=== PATIENT | female | born 1980 | race African-American/Black ===

== ENCOUNTER 2016-06-23 23:05 | Inpatient (IN) | payer MEDICAID ==
[~2016-06-23] VITALS: Ht 167.6 cm; Wt 81.6 kg
[2016-06-23 23:08] VITALS: BP 117/74
--- NOTE | 2016-06-23 23:49 | NUR ---
PT TAKEN TO BED 3
[2016-06-23] MEDS ORDERED: diphenhydrAMINE 50 MG/ML VIAL IVP ONE (23:50)
[2016-06-23] MEDS ORDERED: FAMOTIDINE 20 MG/2 ML VIAL IVP ONE (23:50)
[2016-06-23] MEDS ORDERED: DEXAMETHASONE 10 MG/ML VIAL IVP ONE (23:50)
--- NOTE | 2016-06-24 00:10 | NUR ---
Dr. Hill evaluating patient at bedside.
--- NOTE | 2016-06-24 00:41 | NUR ---
PATIENT PRESENTS TO ED WITH ALLERGIC REACTION . PT STATES SHE IS UNAWARE OF WHAT MAY HAVE CAUSED THE REACTION . DENIES N/V/D; SKIN IS PINK/WARM/DRY; AAOX4 WITH EVEN AND STEADY GAIT; LUNGS CLEAR BL; HR EVEN AND REGULAR; PT DENIES ANY FEVER, CP, SOB, OR COUGH AT THIS TIME; PATIENT STATES PAIN OF 0/10 AT THIS TIME; VSS; PATIENT POSITIONED FOR COMFORT; HOB ELEVATED; BEDRAILS UP X2; BED DOWN. ER MD MADE AWARE OF PT STATUS.
--- NOTE | 2016-06-24 01:50 | NUR ---
Dr. Hill evaluating patient at bedside.
--- NOTE | 2016-06-24 02:07 | NUR ---
Patient appears to be resting comfortably in bed. Vital Signs within normal limits. Respirations even and unlabored.
[2016-06-24] MEDS ORDERED: NACL 0.9% 2,000 ML IV ONE (02:20)
[2016-06-24] MEDS ORDERED: NACL 0.9% 1,000 ML IV SCH (02:43)
--- NOTE | 2016-06-24 02:44 | NUR ---
X-Ray at bedside.
[2016-06-24] MEDS ORDERED: LORazepam 2 MG/ML VIAL IVP PRN (02:45)
[2016-06-24] MEDS ORDERED: diphenhydrAMINE 50 MG/ML VIAL IM SCH (02:45)
[2016-06-24] MEDS ORDERED: ONDANSETRON 4 MG/2 ML VIAL IVP PRN (02:45)
[2016-06-24] MEDS ORDERED: MORPHINE SULFATE 2 MG/ML SYR IVP PRN (02:45)
--- NOTE | 2016-06-24 02:58 | NUR ---
Patient will be admitted to care of DR. PHILLIPS. Admited to Med/Surg. Will go to [id number]. Belongings list completed. Report to JULIA DAVIS .
[2016-06-24 03:15] VITALS: BP 118/71
--- NOTE | 2016-06-24 03:15 | NUR ---
RECEIVED PT FROM ER VIA [facility]TE AAOX4 AMBULATORY IV ON LEFT AC GAUGE 22 INFUSING WELL, RASH GENERALIZED AND EDEMATOUS LIPS, PT IS ORIENTED TO THE FLOOR CALL LIGHT WITHIN REACH
--- NOTE | 2016-06-24 03:15 | NUR ---
Pt report given to JULIA DAVIS. Transfer of care at this time.
[2016-06-24 04:00] VITALS: BP 120/70
[2016-06-24] MEDS: methylPREDNISolone SS 125 MG/2 ML VIAL IVP SCH ×3 (04:57→12:17)
[2016-06-24] MEDS ORDERED: methylPREDNISolone SS 125 MG/2 ML VIAL IVP SCH (05:00)
--- NOTE | 2016-06-24 06:10 | NUR ---
PT SLEEPING WELL NOT DISTRESS NOTED SWELLING LIPS AND SOME RASH ON LE , UE PT IMPROVING HER RASH
--- NOTE | 2016-06-24 07:30 | NUR ---
RECEIVED REPORT FROM NOC.PT IS AWAKE/ AROUSABLE. IV INTACT NO SX OF DISTRESS AT THIS TIME.
[2016-06-24] MEDS ORDERED: diphenhydrAMINE 50 MG/ML VIAL IVP PRN (07:50)
[2016-06-24] MEDS ORDERED: DEXTROSE 50% 50 ML SYR IVP PRN (07:50)
[2016-06-24] MEDS ORDERED: INSULIN LISPRO SLIDING SCALE 100 UNITS/ML VIAL SUBQ PRN (07:50)
[2016-06-24] MEDS ORDERED: ALBUTEROL SULFATE/IPRATROPIU 3 ML SOL IH PRN (07:50)
--- NOTE | 2016-06-24 07:51 | NUR ---
RECEIVED REPORT FROM NOC.PT IS ASLEEP BUT AROUSABLE AND ORIENTED. IV INTACT NO SX OF DISTRESS AT THIS TIME.
[2016-06-24] MEDS ORDERED: LORazepam 1 MG TAB PO PRN (07:55)
[2016-06-24] MEDS ORDERED: ACETAMINOPHEN 325 MG TAB PO PRN (07:55)
[2016-06-24] MEDS ORDERED: HYDROcodone/APAP 5/325 MG 1 TAB TAB PO PRN (07:55)
[2016-06-24] MEDS ORDERED: ZOLPIDEM 5 MG TAB PO PRN (07:55)
--- NOTE | 2016-06-24 07:59 | NUR ---
PATIENT HAS BEEN SCREENED AND CATEGORIZED MODERATE NUTRITION RISK. PATIENT WILL BE SEEN WITHIN 3-5 DAYS OF ADMISSION. 06/26/16-06/28/[address]
[2016-06-24 08:00] VITALS: BP 106/65
--- NOTE | 2016-06-24 08:45 | NUR ---
SPOKE WITH RESIDENT. RE: PT METFORMIN 500 MG 1 TAB AT BEDTIME PT WAS TAKING. MD STATED HE WILL ADD IT IN .
[2016-06-24] MEDS ORDERED: DOCUSATE SODIUM 100 MG GELCAP PO SCH (09:00)
[2016-06-24] MEDS ORDERED: FAMOTIDINE 20 MG TAB PO SCH (09:00)
[2016-06-24] MEDS ORDERED: LORATADINE 10 MG TAB PO SCH (09:00)
--- NOTE | 2016-06-24 09:02 | NUR ---
DUE MEDS GIVEN ORDERED PATIENT IS AWAKE AND ORIENTED. NO DISTRESS REPORTED. EKG DONE. NORMAL SINUS RHYTHM
--- NOTE | 2016-06-24 10:21 | NUR ---
IV REDUCED TO 20 ML/HR ORDERED.
--- NOTE | 2016-06-24 11:00 | NUR ---
MADE ROUNDS. PATIENT IS AWAKE AND ORIENTED. TALKING TO THE PHONE
--- NOTE | 2016-06-24 11:20 | NUR ---
CM NOTE PER [employer] MAINTENANCE SUPERVISOR ROSARIO EXT [id number], SEND REVIEW TO BOTH [facility] AND [facility]. INITIAL REVIEW SENT TO [facility] FAX# [phone] PH# [phone] AND TO [facility] FAX# [phone] PH# [phone] YARIEL EXT [id number]
[2016-06-24] MEDS ORDERED: BLOOD GLUCOSE MONITORING 1 DEV DEV FS SCH (11:30)
--- NOTE | 2016-06-24 12:23 | NUR ---
ADMINISTERED MEDS ORDERED PT IS AWAKE.NO DISTRESS. MOTHER CALLED BACK AND WAS GIVEN REPORT ON PT CONDITION. MOTHER TO VISIT THE PATIENT TODAY IV PATEN NO SX OF INFILTRATION. 2 UNITS OF INSULIN GIVEN PER SLIDING SCALE. PT FOOD TRAY AT THE BEDSIDE.
--- NOTE | 2016-06-24 14:00 | NUR ---
ROUNDS MADE. PT IS ASLEEP. NO DISTRESS REOPRTED AT THIS TIME
--- NOTE | 2016-06-24 16:00 | NUR ---
PATIENT REPORTED " I WANT TO GO HOME.'" DR LEHMAN NOTIFIED. SPOKE TO THE PATIENT IN LENGTH TO DISCUSS PLAN OF CARE, BENEFIT AND DISADVANTAGE. PT IS AWAKE AND ORIENTED ABLE TO MAKE DECISIONS. PT INSISTENTLY WANT TO GO HOME "NOW. "
--- NOTE | 2016-06-24 16:43 | NUR ---
AMA FORM SIGNED WITNESSED BY THE PATIENTS MOM. REFUSED FOR VS, GLUCOSE CHECK TO BE TAKEN PT SIGNED RELEASE OF MED RECORDS. BOTH FORMS IN THE CHART. REMOVED IV INTACT. PRESSURE PLACED SECURED WITH TAPE.
== END 2016-06-24 16:35 | disposition left against medical advice (07) | DRG 811 ==
LOC: MED 23:05 → MTU 06-24 02:57
PROVIDERS: ADMIT Family Medicine; ATTEND Family Medicine
DX: T88.6XXA Anaphylactic reaction due to adverse effect of correct drug or medicament properly administered, initial encounter (principal); E11.65 Type 2 diabetes mellitus with hyperglycemia; L50.9 Urticaria, unspecified; T45.0X5A Adverse effect of antiallergic and antiemetic drugs, initial encounter; Z53.21 Procedure and treatment not carried out due to patient leaving prior to being seen by health care provider

== ENCOUNTER 2016-06-26 04:55 | Emergency (ER) | payer MEDICAID ==
[~2016-06-26] VITALS: Ht 167.6 cm; Wt 91.6 kg
[2016-06-26 05:08] VITALS: BP 122/79
--- NOTE | 2016-06-26 05:26 | NUR ---
TO ER BED 8
--- NOTE | 2016-06-26 05:27 | NUR ---
36 Y/O HERE W/C/O RASH ALL OVER X 1. PT STATES HAD THIS RASH ADNSWOLLEN LIPS X 1 WK AGO AND SAME RASH CAME BACK. PER PT SHE WAS ADMITED ON 06/23/16 FOR SAME REASON BUT SHE WENT AMA. NO S/S OF RESP DISTRESS, O2 SAT 100%.
[2016-06-26] MEDS ORDERED: methylPREDNISolone SS 125 MG in WATER STERILE 2 ML IM ONE (06:15)
[2016-06-26] MEDS ORDERED: FAMOTIDINE 20 MG TAB PO ONE (06:15)
[2016-06-26] MEDS ORDERED: diphenhydrAMINE 50 MG/ML VIAL IM ONE (06:15)
--- NOTE | 2016-06-26 07:01 | NUR ---
Patient discharged with v/s stable. Written and verbal after care instructions given and explained. Patient alert, oriented and verbalized understanding of instructions. Ambulatory with steady gait. All questions addressed prior to discharge. ID band removed. Patient advised to follow up with PMD. Rx of PREDNISONE 20MG given. Patient educated on indication of medication including possible reaction and side effects. Opportunity to ask questions provided and answered.
[2016-06-26 07:02] VITALS: BP 119/82
== END 2016-06-26 07:02 | disposition home or self-care (01) ==
LOC: MED 04:55
DX: R21 Rash and other nonspecific skin eruption (principal); E11.9 Type 2 diabetes mellitus without complications; Z88.0 Allergy status to penicillin
CPT/HCPCS: 96372; 99284; J1200; J2930

== ENCOUNTER 2016-06-27 17:13 | Emergency (ER) | payer MEDICAID ==
[~2016-06-27] VITALS: Ht 167.6 cm; Wt 90.7 kg
[2016-06-27 17:54] VITALS: BP 144/88
--- NOTE | 2016-06-27 18:55 | NUR ---
Pt placed in bed 5.
--- NOTE | 2016-06-27 19:00 | NUR ---
36/F presents to ED with c/o rash all over body today. Pt states she was admitted and signed out AMA on Thursday. Patient is restless and thrashing in bed. PT is c/o severe itchiness. Pt states she took Benadryl before coming but it doesn't work. Patient is AOX4, ambulatory with steady gait. O2 satu 100% on room air. No signs of respiratory distress. VSS.
[2016-06-27] MEDS ORDERED: diphenhydrAMINE 50 MG/ML VIAL IVP ONE ×2 (19:20→20:20)
--- NOTE | 2016-06-27 19:20 | NUR ---
36 Y/O F W/C/O RASH ALL OVER THE BODY NOTE GETTING BETTER FOR MORE THAN 1 WK. PT WAS ADMITTED ON 06/23/16 AND SEEN AGAIN 06/25/16 FOR SAME ISSUE BUT NOT FEELING BETTER. NO S/S OF DISTRESS NOTED AT THE MOMENT.
--- NOTE | 2016-06-27 19:20 | NUR ---
Pt report given to Maritza DAVIS. Transfer of care at this time.
[2016-06-27] MEDS ORDERED: methylPREDNISolone SS 125 MG/2 ML VIAL IVP ONE (20:10)
--- NOTE | 2016-06-27 20:10 | NUR ---
PT C/O CONTINUES ITCHINESS, AND STATES NOT FEELING BETTER AFTER BENADRYL. ER NOTIFIED.
[2016-06-27 21:19] VITALS: BP 132/87
--- NOTE | 2016-06-27 21:19 | NUR ---
Patient discharged with v/s stable. Written and verbal after care instructions given and explained. Patient alert, oriented and verbalized understanding of instructions. Ambulatory with steady gait. All questions addressed prior to discharge. ID band removed. Patient advised to follow up with PMD TOMORROW OR RETURN TO ER IF CONDITION WORSENS. Rx of given. Patient educated on indication of medication including possible reaction and side effects. Opportunity to ask questions provided and answered.
== END 2016-06-27 21:19 | disposition home or self-care (01) ==
LOC: MED 17:13
DX: L50.9 Urticaria, unspecified (principal); E11.9 Type 2 diabetes mellitus without complications; Z88.0 Allergy status to penicillin
CPT/HCPCS: 96372; 96374; 96375; 96376; 99284; J0171; J1200; J2930

== ENCOUNTER 2016-07-16 01:09 | Emergency (ER) | payer MEDICAID ==
[~2016-07-16] VITALS: Ht 162.6 cm; Wt 81.6 kg
[2016-07-16 01:15] VITALS: BP 121/79
--- NOTE | 2016-07-16 01:26 | NUR ---
Patient ambulated to bed 05.
--- NOTE | 2016-07-16 01:31 | NUR ---
PT IS 36/F BIB SELF TO ED WITH C/O HEADACHE AND VOMITING STARTED AN HOUR AGO. PT DENIES D; SKIN IS PINK/WARM/DRY; AAOX4 WITH EVEN AND STEADY GAIT; LUNGS CLEAR BL; HR EVEN AND REGULAR; PT DENIES ANY FEVER, CP, SOB, OR COUGH AT THIS TIME; PATIENT STATES PAIN OF 10/10 AT THIS TIME; VSS; PATIENT POSITIONED FOR COMFORT; HOB ELEVATED; BEDRAILS UP X2; BED DOWN. ER MD MADE AWARE OF PT STATUS.
--- NOTE | 2016-07-16 01:47 | NUR ---
Dr. Cavazos evaluating patient at bedside.
[2016-07-16] MEDS ORDERED: DIAZEPAM 5 MG TAB PO ONE (01:50)
[2016-07-16] MEDS ORDERED: ONDANSETRON 4 MG ODT PO ONE (01:50)
[2016-07-16] MEDS ORDERED: KETOROLAC 30 MG/ML VIAL IM ONE (01:50)
--- NOTE | 2016-07-16 02:02 | NUR ---
PT REFUSED TORADOL IM. ER MADE AWARE. WILL FOLLOW UP.
[2016-07-16 03:04] LABS: AMPHETAMINE, URINE POS. ng/ml (NEG <=1000); BARBITURATE, URINE NEG. ng/ml (NEG <=200); BENZODIAZEPINE, URINE NEG. ng/mL (NEG <=200); CANNABINOID, URINE POS. ng/mL (NEG <=50); COCAINE, URINE NEG. ng/mL (NEG <=300); OPIATE, URINE NEG. ng/mL (NEG <=2000); PHENCYCLIDINE SCREEN,URINE NEG. ng/mL (NEG <=25)
--- NOTE | 2016-07-16 03:22 | NUR ---
Patient back from CT via wheelchair per tech.
[2016-07-16 04:11] VITALS: BP 118/76
== END 2016-07-16 04:12 | disposition home or self-care (01) ==
LOC: MED 01:09
DX: R51 Headache (principal); R11.2 Nausea with vomiting, unspecified; E11.9 Type 2 diabetes mellitus without complications; I10 Essential (primary) hypertension; E78.5 Hyperlipidemia, unspecified; F17.210 Nicotine dependence, cigarettes, uncomplicated; Z88.0 Allergy status to penicillin; Z71.6 Tobacco abuse counseling
CPT/HCPCS: 70450; 80305; 81025; 99285; J1885; S0119

== ENCOUNTER 2017-01-11 21:04 | Emergency (ER) | payer MEDICAID ==
[~2017-01-11] VITALS: Ht 170.2 cm; Wt 81.6 kg
[2017-01-11 21:14] VITALS: BP 116/79
--- NOTE | 2017-01-11 21:40 | NUR ---
AMBULATED TO ER BED 12
--- NOTE | 2017-01-11 21:45 | NUR ---
36/F C/O 10/10 SHARP PAIN TO RT FLANK, NECK AND ISHA SHOULDERS, ACUTE ONSET X TODAY. PT REPORTS NAUSEA, BUT DENIES VOMITING/FEVER, TRAUMA/INJURY, - TENDERNESS TO NECK/SHOULDER DENIES DYSURIA, HEMATURIA. BS ACTIVE X 4 QUADRANTS, - TENDERNESS. PMH: DM/HLD, PT DENIES TAKING RX AT HOME. DENIES OTC. CURRENT BS:132
--- NOTE | 2017-01-11 22:41 | NUR ---
ER EVALUATING PT AT BEDSIDE
[2017-01-11] MEDS ORDERED: KETOROLAC 60 MG/2 ML VIAL IM ONE (22:50)
--- NOTE | 2017-01-11 23:50 | NUR ---
Patient discharged with v/s stable. Written and verbal after care instructions given and explained. Patient alert, oriented and verbalized understanding of instructions. Ambulatory with steady gait. All questions addressed prior to discharge. ID band removed. Patient advised to follow up with PMD. Rx of FLEXIRIL 10MG ONE TAB PO QHS PRN, MOTRIN 800MG ONE TAB 3 TIMES A DAY PO , TRAMADOL HCL 50MG ONE TAB EVERY 6 HOURS PO PRN given. Patient educated on indication of medication including possible reaction and side effects. Opportunity to ask questions provided and answered.
[2017-01-12 00:05] VITALS: BP 103/63
== END 2017-01-11 23:50 | disposition home or self-care (01) ==
LOC: MED 21:04
DX: S16.1XXA Strain of muscle, fascia and tendon at neck level, initial encounter (principal); R11.0 Nausea; R63.0 Anorexia; E11.9 Type 2 diabetes mellitus without complications; I10 Essential (primary) hypertension; E78.5 Hyperlipidemia, unspecified; Z88.0 Allergy status to penicillin; X58.XXXA Exposure to other specified factors, initial encounter; Y93.89 Activity, other specified; Y92.89 Other specified places as the place of occurrence of the external cause; Y99.8 Other external cause status
CPT/HCPCS: 72040; 81002; 81025; 82948; 96372; 99284; J1885

== ENCOUNTER 2019-11-24 11:44 | Emergency (ER) | payer MEDICAID ==
[~2019-11-24] VITALS: Ht 157.5 cm; Wt 97.1 kg
--- NOTE | 2019-11-24 11:49 | NUR ---
PT AMBULATED TO BED 2.
[2019-11-24 11:52] VITALS: BP 123/79
--- NOTE | 2019-11-24 11:56 | NUR ---
AT BEDSIDE EVALUATING PT.
--- NOTE | 2019-11-24 11:58 | NUR ---
FROM HOME WITH C/O RASHES TO LE, UE FOR 2 WEEKS WITH ITCHINESS , TOPICAL MEDS APPLIED WITH NO RELIEF , DENIES SOB , ALLERGIES TO FOOD . PT AOX4 , AFIBRILE , AMBULATORY WITH STEADY GAIT, RED RASHES ON BOTH UPPER AND LOWER EXTREMITY. PMHXS DM , HYPERCHOLESTEROLEMIA .
[2019-11-24 12:10] VITALS: BP 123/79
--- NOTE | 2019-11-24 12:10 | NUR ---
Patient discharged with v/s stable in ER [facility]. Patient did not want to wait in room for discharge paperwork. Written and verbal after care instructions given and explained. Patient alert, oriented and verbalized understanding of instructions. Ambulatory with steady gait. All questions addressed prior to discharge. ID band removed. Patient advised to follow up with PMD. Rx of Prednisone 20mg given. Patient educated on indication of medication including possible reaction and side effects. Pt advised to complete the medication prescribed for the entire course. Opportunity to ask questions provided and answered.
== END 2019-11-24 12:10 | disposition home or self-care (01) ==
LOC: MED 11:44
DX: R21 Rash and other nonspecific skin eruption (principal); E11.9 Type 2 diabetes mellitus without complications; I10 Essential (primary) hypertension; F17.210 Nicotine dependence, cigarettes, uncomplicated; F12.90 Cannabis use, unspecified, uncomplicated; Z88.0 Allergy status to penicillin
CPT/HCPCS: 99283

== ENCOUNTER 2020-01-12 17:26 | Emergency (ER) | payer MEDICAID ==
[~2020-01-12] VITALS: Ht 157.5 cm; Wt 99.3 kg
[2020-01-12 17:43] VITALS: BP 145/71
--- NOTE | 2020-01-12 17:43 | NUR ---
PT TAKEN TO BED 4.
--- NOTE | 2020-01-12 17:55 | NUR ---
C/O L UPPER ARM PAIN X "A FEW WEEKS". PT DENIES INJURY OR TRAUMA TO THE ARM. LIGHT BRUISE AND TENDERNESS NOTED TO L UPPER ARM. CAP REFIL <3 SECOND. PT DENIES NUMBNESS/TINGLING TO L ARM/HAND. BED IN LOW POSITION, SIDE RAIL UP X1
--- NOTE | 2020-01-12 19:10 | NUR ---
RECIEVED REPORT FROM RYAN ZABALA. TRANSFER OF CARE AT THIS TIME.
--- NOTE | 2020-01-12 19:35 | NUR ---
PT IS RESTING IN BED. DENIES NEED FOR PAIN INTERVENTIONS. ALL PT NEEDS MET AT THIS TIME. BED LOCKED IN LOWEST POSITION, SIDE RAILS X1.
--- NOTE | 2020-01-12 19:44 | NUR ---
ERMD AT BEDSIDE
[2020-01-12 19:54] VITALS: BP 137/86
--- NOTE | 2020-01-12 19:54 | NUR ---
Patient discharged with v/s stable. Written and verbal after care instructions given and explained. Patient alert, oriented and verbalized understanding of instructions. Ambulatory with steady gait. All questions addressed prior to discharge. ID band removed. Patient advised to follow up with PMD. Rx of ROBAXIN given. Patient educated on indication of medication including possible reaction and side effects. Opportunity to ask questions provided and answered.
== END 2020-01-12 19:54 | disposition home or self-care (01) ==
LOC: MED 17:26
DX: M79.602 Pain in left arm (principal); E11.9 Type 2 diabetes mellitus without complications; I10 Essential (primary) hypertension
CPT/HCPCS: 93971; 99284; Q0092